=== PATIENT | male | born 1980 | race Hispanic/Latino ===

== ENCOUNTER → 2024-03-13 | Outpatient (REF) | payer MEDICARE ==
[~2024-03-13] MED LIST: AMOX TR-K400 MG/5 M PO; PHENOBARBITAL32.4 MG PEG; REGLAN5 MG PEG
== END | disposition home or self-care (01) ==
LOC: RAD 05:00 → EDSTATUS 03-20 09:30 → OR 03-20 10:23
PROVIDERS: ATTEND Internal Medicine Gastroenterology
DX: Z43.1 Encounter for attention to gastrostomy (principal); Z01.810 Encounter for preprocedural cardiovascular examination; Z79.899 Other long term (current) drug therapy
CPT/HCPCS: 93005

== ENCOUNTER 2024-07-15 04:45 | Emergency (ER) | payer MEDICARE ==
[~2024-07-15] VITALS: Ht 134.6 cm; Wt 43.1 kg
[2024-07-15] MEDS ORDERED: ACETAMINOPHEN 325 MG TAB PO STA (04:58)
[2024-07-15] MEDS ORDERED: ACETAMINOPHEN 1000 MG/100 ML 100 ML IV ONE (05:21)
[2024-07-15 05:31] LABS: BASOPHILS % 0.3 % (0.0-1.0); EOSINOPHILS % 0.1 % (0.0-6.0); HEMATOCRIT 40.2 % (38.2-49.6); HEMOGLOBIN 13.2 g/dL (14.0-18.0); LYMPHOCYTES # (AUTO) 0.8 (1.0-3.2); MEAN CORPUSCULAR HEMOGLOBIN 31.3 pg (28-32); MEAN CORPUSCULAR HGB CONC 32.8 g/dL (31-35); MEAN CORPUSCULAR VOLUME 95.3 fL (81-99); MONOCYTES # (AUTO) 0.8 (0.2-0.8); MONOCYTES % 7.6 % (4.4-11.3); NEUTROPHILS # (AUTO) 8.5 (2.1-6.9); NEUTROPHILS % 83.7 % (38.7-80.0); PLATELET COUNT 186 x10e3/uL (140-360); RED BLOOD COUNT 4.22 x10e6/uL (4.3-5.7); RED CELL DISTRIBUTION WIDTH 12.1 % (11.7-14.4)
[2024-07-15] MEDS: SODIUM CHLORIDE 0.9% 1000ML 1,000 ML IV STA ×2 (05:39)
[2024-07-15] MEDS: ACETAMINOPHEN 1000 MG/100 ML IV STA (05:40)
[2024-07-15 05:53] LABS: ALBUMIN 4.1 g/dL (3.5-5.0); ALBUMIN/GLOBULIN RATIO 1.1 (0.8-2.0); ANION GAP 16.2 mmol/L (8-16); BILIRUBIN,TOTAL 0.4 mg/dL (0.2-1.2); CALCIUM 9.8 mg/dL (8.4-10.2); CREATININE, SERUM 0.68 mg/dL (0.72-1.25); POTASSIUM 4.2 mmol/L (3.5-5.1)
[2024-07-15 05:58] LABS: TROPONIN I 0.004 ng/mL (0-0.300)
[2024-07-15 06:04] LABS: INFLUENZA A AG NEGATIVE (NEGATIVE); INFLUENZA B AG NEGATIVE (NEGATIVE)
[2024-07-15 06:05] LABS: CORONAVIRUS COVID-19 AG NEGATIVE (NEGATIVE)
[2024-07-15] MEDS ORDERED: IOPAMIDOL 370 MG/ML 100 ML INFUS..BTL INJ ONE (06:08)
[2024-07-15] MEDS: Morphine 4mg INJECTION 4 MG/ML INJ IV STA (06:13)
[2024-07-15] MEDS: ONDANSETRON HCL INJ 2MG/ML 2ML 2 MG/ML VIAL IV STA (06:13)
[2024-07-15 07:45] VITALS: PULSE 117; RESP 23
[2024-07-15 08:00] VITALS: BP 123/108
[2024-07-15 08:11] LABS: BILIRUBIN,URINE NEGATIVE (NEGATIVE); CLARITY,URINE SL CLOUDY (CLEAR); COLOR,URINE YELLOW (YELLOW); GLUCOSE, URINE NEGATIVE (NEGATIVE); KETONES,URINE NEGATIVE (NEGATIVE); LEUKOCYTE ESTERASE ,URINE NEGATIVE (NEGATIVE); NITRITE,URINE NEGATIVE (NEGATIVE); PH,URINE 7 (5 - 7); PROTEIN,URINE DIPSTICK NEGATIVE (NEGATIVE); URINE UROBILINOGEN 0.2 mg/dL (0.2 - 1)
[2024-07-15 08:22] LABS: BACTERIA,URINE MODERATE /HPF; EPITHELIAL CELLS,URINE RARE /LPF; WBC,URINE (MAN) 0-5 /HPF (0-5)
[2024-07-15 08:23] LABS: AMORPHOUS SEDIMENT,URINE FEW (FEW); TRANSITIONAL EPI CELLS,URINE RARE
[2024-07-15 08:52] VITALS: TEMP 98.7
[2024-07-15 10:01] VITALS: PULSE 109; RESP 18; O2SAT 97
[2024-07-15] MEDS: DIAZEPAM INJ 5 MG/ML 2 ML IV ONE (10:01)
== END 2024-07-15 10:41 | disposition home or self-care (01) ==
LOC: ER 04:50
DX: R07.89 Other chest pain (principal); E87.20 Acidosis, unspecified; K59.00 Constipation, unspecified; G80.9 Cerebral palsy, unspecified; G40.909 Epilepsy, unspecified, not intractable, without status epilepticus
CPT/HCPCS: 36415; 71260; 74177; 80053; 81001; 82550; 83605; 83690; 84484; 85025; 87040; 87086; 87186; 87428; 93005; 99284; J0131; J2543; J3360; J7030; Q9967

== ENCOUNTER 2024-12-21 21:52 | Emergency (ER) | payer MEDICARE ==
[2024-12-22 00:11] VITALS: PULSE 135; RESP 22; TEMP 98.9; O2SAT 96
[2024-12-22 00:13] LABS: BASOPHILS % 0.4 % (0.0-1.0); EOSINOPHILS % 0.1 % (0.0-6.0); HEMATOCRIT 37.1 % (38.2-49.6); HEMOGLOBIN 12.8 g/dL (14.0-18.0); LYMPHOCYTES # (AUTO) 0.5 (1.0-3.2); LYMPHOCYTES % 6.6 % (18.0-39.1); MEAN CORPUSCULAR HEMOGLOBIN 31.3 pg (28-32); MEAN CORPUSCULAR HGB CONC 34.5 g/dL (31-35); MEAN CORPUSCULAR VOLUME 90.7 fL (81-99); MONOCYTES # (AUTO) 0.6 (0.2-0.8); MONOCYTES % 7.6 % (4.4-11.3); NEUTROPHILS # (AUTO) 6.9 (2.1-6.9); NEUTROPHILS % 85.1 % (38.7-80.0); PLATELET COUNT 95 x10e3/uL (140-360); RED BLOOD COUNT 4.09 x10e6/uL (4.3-5.7); RED CELL DISTRIBUTION WIDTH 13.1 % (11.7-14.4); WHITE BLOOD COUNT 8.16 x10e3/uL (4.8-10.8)
[2024-12-22] MEDS ORDERED: IOPAMIDOL 370 MG/ML 100 ML INFUS..BTL INJ ONE (00:15)
[2024-12-22] MEDS: ONDANSETRON HCL INJ 2MG/ML 2ML 2 MG/ML VIAL IV STA (00:22)
[2024-12-22] MEDS ORDERED: SODIUM CHLORIDE 0.9% 1000ML 1,000 ML ONE (00:27)
[2024-12-22] MEDS: SODIUM CHLORIDE 0.9% 1000ML 1,000 ML IV STA (00:28)
[2024-12-22] MEDS: Morphine 4mg INJECTION 4 MG/ML INJ IV STA (00:33)
[2024-12-22 00:34] LABS: ALBUMIN 4.2 g/dL (3.5-5.0); ALBUMIN/GLOBULIN RATIO 1.1 (0.8-2.0); BILIRUBIN,TOTAL 0.4 mg/dL (0.2-1.2); CALCIUM 9.9 mg/dL (8.4-10.2); CREATININE, SERUM 0.71 mg/dL (0.72-1.25); TOTAL PROTEIN 8.1 g/dL (6.5-8.1)
[2024-12-22 00:44] LABS: ANION GAP 20.1 mmol/L (8-16); POTASSIUM 4.1 mmol/L (3.5-5.1)
[2024-12-22 04:49] LABS: BILIRUBIN,URINE NEGATIVE (NEGATIVE); CLARITY,URINE CLEAR (CLEAR); COLOR,URINE YELLOW (YELLOW); GLUCOSE, URINE NEGATIVE (NEGATIVE); KETONES,URINE NEGATIVE (NEGATIVE); LEUKOCYTE ESTERASE ,URINE NEGATIVE (NEGATIVE); NITRITE,URINE NEGATIVE (NEGATIVE); PH,URINE 7 (5 - 7); PROTEIN,URINE DIPSTICK NEGATIVE (NEGATIVE); URINE UROBILINOGEN 0.2 mg/dL (0.2 - 1)
[2024-12-22 05:00] LABS: BACTERIA,URINE MODERATE /HPF; EPITHELIAL CELLS,URINE FEW /LPF; RBC,URINE 0-5 /HPF (0-5); WBC,URINE (MAN) 0-5 /HPF (0-5)
[2024-12-22 05:01] LABS: MUCUS,URINE FEW
[2024-12-25] MEDS ORDERED: ULTRAM 50MG50 MG PO (01:08)
[2024-12-25] MEDS ORDERED: AMOX TR-K CLV1 EAC2 PO (01:08)
[2024-12-25] MEDS ORDERED: ENULOSE10 GM/15 M PO (09:20)
[2024-12-25] MEDS ORDERED: NEXIUM20 MG PO (09:20)
[2024-12-25] MEDS ORDERED: BENZONATATE200 MG PO (09:20)
[2024-12-28] MEDS ORDERED: AMOXICILLI400 MG/5 M PO (10:12)
== END 2024-12-22 04:53 | disposition home or self-care (01) ==
LOC: ER 22:00
DX: R33.9 Retention of urine, unspecified (principal); G80.9 Cerebral palsy, unspecified; G40.909 Epilepsy, unspecified, not intractable, without status epilepticus
CPT/HCPCS: 36415; 51702; 70450; 71260; 74177; 80053; 81001; 83690; 85025; 99283; J2270; J2405; J7030; Q9967